=== PATIENT | female | born 1965 | race Caucasian/White ===

== ENCOUNTER 2017-10-31 16:28 | Emergency (ER) | payer BC, OTHER ==
[2017-10-31 16:41] VITALS: BP 147/87
[2017-10-31] MEDS ORDERED: HYDROmorphone 0.5 MG/0.5 ML Syringe IVPUSH ONE (16:52)
[2017-10-31] MEDS ORDERED: Ketorolac 15 MG/ML SDV IVPUSH ONE ×2 (17:57→17:58)
[2017-10-31] MEDS ORDERED: Acetaminophen/HYDROcodone 325-5 MG Tab PO ONE (17:58)
[2017-10-31] MEDS ORDERED: Acetaminophen/oxyCODONE 325-5 MG Tab PO ONE (18:01)
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
--- NOTE | 2017-11-01 09:06 | CR ---
Sacrum and coccyx: Two views of the sacrum and coccyx were obtained. No lateral view obtained. Sacroiliac joints are within normal limits. Joint spaces within both hips are preserved. No discrete fracture or other abnormality is seen. Impression: 1. Unremarkable two-view sacrum and coccyx study. Study is somewhat limited without a lateral view. Diagnostic code #2
--- NOTE | 2017-11-01 09:06 | CR ---
Pelvis: AP view of the pelvis was obtained. Comparison: No previous study. Joint spaces within both hips are maintained. Sacroiliac joints are within normal limits. Minimal sclerosis within the pubic symphysis is seen which is incidental. Nothing acute is identified. Multiple calcifications are seen within the pelvis which are compatible with phleboliths. Impression: 1. Nothing acute is seen. Diagnostic code #2
--- NOTE | 2017-11-01 09:30 | CT ---
CT lumbar spine Technique: Multiple axial sections were obtained from the lower T11 level inferiorly through the L5-S1 disc. Reconstructed sagittal and coronal images were reviewed. Findings: Endplate compression fracture identified superiorly within T12. There is extension into the posterior vertebral line. Fracture does not extend into the pedicles or lamina. Slight displacement of a posterior fragment of the vertebral body is seen by about 3.3 mm. No other fracture is seen. Mild spondylolisthesis noted at L4-L5 due to degenerative apophyseal change. No central canal stenosis is seen. No neural foraminal stenosis is identified. Mild diffuse posterior disc bulge seen at L3-L4, L4-L5 and L5-S1. Impression: 1. Fracture within the superior endplate of T12 extending to the posterior vertebral line. Posterior fragment slightly displaced into the central canal by about 3.3 mm. Pedicles and posterior arch of T12 are intact. 2. Degenerative change as noted above. Diagnostic code #5 I agree with preliminary report issued by [facility], please note preliminary [facility]report shows a level discrepancy with the body of the report stating fracture at T12 and impression stating fracture at L4 ([facility] report finalized on 10/31/17, 8:30 PM Central Time)
--- NOTE | 2017-11-01 09:30 | CT ---
CT pelvis Technique: Multiple axial sections through the pelvis were obtained. Reconstructed sagittal and coronal images were reviewed. Findings: Mild spondylolisthesis seen at L4-L5 due to degenerative apophyseal change. Minimal cortical disruption suggested within the approximate third sacral segment suspicious for a nondisplaced fracture. Sacroiliac joints are unremarkable. Small cyst noted within the superior left acetabulum which is degenerative in etiology. No additional abnormality is seen within the pelvis or hips. Impression: 1. Degenerative change as noted above. 2. Possible nondisplaced fracture within the mid sacrum. MRI would be needed to confirm if clinically needed. Diagnostic code #3 I agree with preliminary report issued by [facility] ([facility] report finalized on 10/31/17, 8:27 PM Central Time)
== END 2017-10-31 23:00 ==
LOC: MERGE 16:28 → JD.ED 16:28
DX: S32.110A Nondisplaced Zone I fracture of sacrum, initial encounter for closed fracture (principal); S22.089A Unspecified fracture of T11-T12 vertebra, initial encounter for closed fracture; F17.210 Nicotine dependence, cigarettes, uncomplicated; E03.9 Hypothyroidism, unspecified; Z79.899 Other long term (current) drug therapy; W10.8XXA Fall (on) (from) other stairs and steps, initial encounter
CPT/HCPCS: 72131; 72170; 72192; 72220; 96374; 96375; 99285; A9270; J1170; J1885

== ENCOUNTER 2021-03-16 10:36 | Day surgery (SDC) | payer OTHER ==
[~2021-03-16 10:36] MED LIST: Lactated Ringers 1,000 ML IV SCH; Lidocaine 1%/Sod Bicarbonate in NS 8.4% 1 ML Syringe IDERM PRN; Sodium Chloride 0.9% 10 ML Syringe FLUSH PRN
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
[2021-03-16] MEDS ORDERED: fentaNYL 250 MCG/5 ML SDV ONE (13:40)
[2021-03-16] MEDS ORDERED: Propofol 200 MG/20 ML SDV ONE (13:40)
[2021-03-16] MEDS ORDERED: Ondansetron 4 MG/2 ML SDV ONE (13:40)
[2021-03-16] MEDS ORDERED: Midazolam 1 MG/ML 2 ML SDV ONE (13:40)
[2021-03-16] MEDS ORDERED: Dexamethasone 4 MG/ML 5 ML MDV ONE (13:40)
[2021-03-16] MEDS ORDERED: Lidocaine 1% 4 ML ONE (13:41)
[2021-03-16] MEDS ORDERED: ceFAZolin 1 GM Vial ONE (13:43)
[2021-03-16] MEDS ORDERED: Labetalol 100 MG/20 ML MDV ONE (15:35)
[2021-03-16] MEDS: Bupivacaine 0.25% 10 ML SDV ONE ×2 (15:39→16:30)
[2021-03-16] MEDS ORDERED: HYDROmorphone 0.5 MG/0.5 ML Syringe ONE (16:09)
[2021-03-16] MEDS ORDERED: Ketorolac 30 MG/ML SDV ONE (16:36)
--- NOTE | 2021-03-16 17:07 | PCM.POSTAN ---
POST ANESTHESIA ASSESSMENT - MENTAL STATUS Mental Status: Alert, Oriented - VITAL SIGNS Vital Signs: Last Vital Signs Temp 36.6 C 03/16/21 10:35 Pulse 62 03/16/21 10:35 Resp 17 03/16/21 10:35 BP 151/87 H 03/16/21 10:35 Pulse Ox 97 03/16/21 10:35 - RESPIRATORY Respiratory Status: Respiratory Rate WNL, Airway Patent, O2 Saturation Stable, Supplemental Oxygen - CARDIOVASCULAR CV Status: Pulse Rate WNL, Blood Pressure Stable - GASTROINTESTINAL GI Status: No Symptoms - PAIN Pain Score: 0 - POST OP HYDRATION Hydration Status: Adequate & Stable - OBSERVATIONS Free Text/Narrative:: no anesthesia complications noted
[2021-03-16] MEDS: fentaNYL 100 MCG/2 ML SDV IVPUSH PRN ×2 (17:18→17:39)
[2021-03-16] MEDS ORDERED: Acetaminophen/HYDROcodone 325-5 MG Tab PO PRN (17:26)
--- NOTE | 2021-03-16 17:32 | CR ---
Right wrist: 11 fluoroscopic spot views were obtained of the right wrist. Study was obtained utilizing C-arm device in the operating room. Study shows osteotomy within the distal radius with fixation by plate and screws. Second osteotomy is noted within the distal ulna. Fluoroscopy time was not included on this exam. Impression: 1. Procedural study as described above. No fluoroscopy was given on this exam. Diagnostic code #2
--- NOTE | 2021-03-16 17:57 | PCM48HPAN ---
Post Anesthesia Note - EVALUATION WITHIN 48HRS OF ANESTHETIC Vital Signs in Normal Range: Yes Patient Participated in Evaluation: Yes Respiratory Function Stable: Yes Airway Patent: Yes Cardiovascular Function Stable: Yes Hydration Status Stable: Yes Pain Control Satisfactory: Yes Nausea and Vomiting Control Satisfactory: Yes Mental Status Recovered: Yes Vital Signs: Last Vital Signs Temp 36.7 C 03/16/21 17:45 Pulse 93 03/16/21 17:45 Resp 16 03/16/21 17:45 BP 148/79 H 03/16/21 17:45 Pulse Ox 97 03/16/21 17:45
[2021-03-16 20:24] VITALS: BP 159/76; PULSE 74
--- NOTE | 2021-03-22 11:47 | PCM.SN.2 ---
#1 Interpretation EKG Date: 03/16/21 Rhythm: NSR Rate (Beats/Min): 59 [place]: Normal P-Wave: Present QRS: Other (low voltage) ST-T: Normal QT: Normal
--- NOTE | 2021-03-28 07:38 | PCM.OPNOTE ---
- General Post-Op/Procedure Note Date of Surgery/Procedure: 03/16/21 Operative Procedure(s): right distal radial osteotomy with open reduction internal fixation Pre Op Diagnosis: right distal radial fracture malunion Post-Op Diagnosis: Same Anesthesia Technique: General LMA, Local Primary Surgeon: Jose Luu Anesthesia Provider: Faviola Ding Insecticide Mixer: Shira Pederson in mLs: 5 Complications: None Condition: Good
--- NOTE | 2021-03-28 08:49 | OR ---
DATE OF OPERATION: 03/16/2021 SURGEON: Jose Luu MD OPERATION PERFORMED: Right distal radial osteotomy, open reduction internal fixation. PREOPERATIVE DIAGNOSIS: Right distal radius fracture, malunion. POSTOPERATIVE DIAGNOSIS: Right distal radius fracture, malunion. ANESTHESIA: General LMA with local. ANESTHESIA PROVIDER: Faviola Ding ICE SKATING INSTRUCTOR: Shira Pederson PA-C ESTIMATED BLOOD LOSS: 5 mL. COMPLICATIONS: None. CONDITION: Stable. DESCRIPTION OF PROCEDURE: The patient was identified in the preoperative holding area. Proper site was marked and identified by the surgeon. The patient was taken back to the operative theater, where after adequate anesthesia, the patient's right upper extremity had a nonsterile tourniquet applied, and then sterilely prepped and draped in usual sterile fashion. OR time-out was performed. The patient received 2 g IV Ancef. Right upper extremity was exsanguinated. Tourniquet was insufflated to 220 mmHg. Standard volar approach of Chip was undertaken. FCR was retracted to protect the median nerve. Floor of the tendon sheath was then opened. Pronator quadratus was subperiosteally taken off the distal radius. The distal radial joint line was then identified, and using osteotomes as well as K-wires and a drill bit, the distal radial osteotomy was done roughly 2 cm proximal to the joint line. At this time, the distal fragment was freed. Then, K-wire placed. I was able to then position the plate distally and obtain bicortical fixation distally in the distal fragment. I was then able to correct nearly all of the loss of volar tilt as well as radial height and a significant radial displacement. The distal ulna and ulna styloid prominence were then reduced so that it was comparable to the contralateral side. At this time, it was fixed with cortical and locking screws on the proximal fragment. It was found to have anatomic reduction on both AP, lateral, and 23-degree lateral views. The patient had full range of motion of the wrist joint with no signs of instability. At this time, adequate saline was irrigated through the wound and crushed cancellous bone chips as well as demineralized bone matrix were then placed in the gap site of the distal radial osteotomy site. At this time, 2-0 Vicryl was used subcutaneously and Monocryl was used for closure of the skin. The patient was placed in a sterile soft dressing and a volar slab splint and sent to the PACU in stable condition. PARISH /[id number]
== END 2021-03-16 20:56 | disposition home or self-care (01) ==
LOC: JD.SDS 10:36 → JD.MS 18:20 → JD.SDS 20:56
PROVIDERS: ATTEND Orthopaedic Surgery
DX: S52.531P Colles' fracture of right radius, subsequent encounter for closed fracture with malunion (principal); E03.9 Hypothyroidism, unspecified; Z79.899 Other long term (current) drug therapy; Z79.890 Hormone replacement therapy; Z98.890 Other specified postprocedural states; Z87.891 Personal history of nicotine dependence
CPT/HCPCS: 01830; 76000; 76000-26; 93005; A9270-GY; C1713; C1776; J0690; J1100; J1170; J1885; J2250; J2405; J2704; J3010; J3490; J7120

== ENCOUNTER 2023-03-10 09:47 | Emergency (ER) | payer OTHER ==
[2023-03-10] MEDS ORDERED: Sodium Chloride 0.9% 10 ML Syringe FLUSH PRN (10:13)
[2023-03-10] MEDS ORDERED: HYDROmorphone 0.5 MG/0.5 ML Syringe IVPUSH ONE (11:03)
[2023-03-10] MEDS ORDERED: HYDROmorphone 1 MG/ML Syringe IM ONE (11:18)
[2023-03-10 12:20] VITALS: BP 145/74; PULSE 66
== END 2023-03-10 12:13 | disposition home or self-care (01) ==
LOC: JD.ED 09:47
DX: S42.212A Unspecified displaced fracture of surgical neck of left humerus, initial encounter for closed fracture (principal); E03.9 Hypothyroidism, unspecified; Z79.899 Other long term (current) drug therapy; W19.XXXA Unspecified fall, initial encounter
CPT/HCPCS: 73030; 96372; 99283; J1170; 99284